=== PATIENT | male | born 1945 | race Caucasian/White ===

== ENCOUNTER 2016-12-16 10:51 | Day surgery (SDC) | payer MEDICARE, MEDICAID ==
[~2016-12-16 10:51] MED LIST: CIPR500T4 PO; CLIN1CAP6 PO; COUM5TAB PO; DOXY100T PO; SOTA120T17 PO
--- NOTE | 2016-12-17 16:22 | EKG ---
Date Performed: 12/16/2016 Time Performed: 11:25:42 PTAGE: 71 years EKG: Sinus rhythm with 1st degree A-V block rSr'(V1) - probable normal variant Septal ST-T changes are nonspecific Com pared to prior tracing no significant change Abnormal ECG PREVIOUS TRACING : 04/06/2014 16.57 DOCTOR: Rosendo Mccurdy Interpretating Date/Time 12/17/2016 16:20:36
== END 2016-12-16 12:11 | disposition home or self-care (01) ==
LOC: HDOC 10:51 → HDIC 10:53 → HDOC 12:11
PROVIDERS: ATTEND Internal Medicine Interventional Cardiology
DX: I48.0 Paroxysmal atrial fibrillation (principal); R94.31 Abnormal electrocardiogram [ECG] [EKG]; Z53.9 Procedure and treatment not carried out, unspecified reason
CPT/HCPCS: 93005; G0463; 99211

== ENCOUNTER 2018-04-11 11:06 | Emergency (ER) | payer MEDICARE, MEDICAID ==
[~2018-04-11] VITALS: Ht 188 cm; Wt 80.0 kg
[2018-04-11 11:18] VITALS: BP 158/78; PULSE 86; RESP 18; TEMP 98.9; O2SAT 96
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
== END 2018-04-11 12:10 | disposition home or self-care (01) ==
LOC: NEPD 11:06
DX: G89.29 Other chronic pain (principal); M54.5 Low back pain
CPT/HCPCS: 99282